=== PATIENT | male | born 1990 | race African-American/Black ===

== ENCOUNTER 2016-06-16 16:43 | Emergency (ER) | payer MEDICAID ==
[~2016-06-16] VITALS: Ht 170.2 cm; Wt 59.0 kg
[2016-06-16] MEDS ORDERED: IBUPROFEN 600 MG TABLET PO ONE ×2 (16:55→17:00)
[2016-06-16] MEDS ORDERED: HYDROCODONE/APAP 5/325MG 1 EACH TABLET ONE (16:55)
[2016-06-16] MEDS ORDERED: HYDROCODONE/APAP 5/325MG 1 EACH TABLET PO ONE (17:00)
[2016-06-16 18:43] VITALS: BP 128/84
== END 2016-06-16 18:44 | disposition home or self-care (01) ==
LOC: ER 16:46
DX: S16.1XXA Strain of muscle, fascia and tendon at neck level, initial encounter (principal); S39.012A Strain of muscle, fascia and tendon of lower back, initial encounter; F41.9 Anxiety disorder, unspecified; V49.49XA Driver injured in collision with other motor vehicles in traffic accident, initial encounter; Y93.89 Activity, other specified; Y92.89 Other specified places as the place of occurrence of the external cause; Y99.9 Unspecified external cause status
CPT/HCPCS: 72040; 72070; 72100; 99284; A4606; Z7610